=== PATIENT | male | born 1995 | race Caucasian/White ===

== ENCOUNTER 2016-06-21 09:13 | Day surgery (SDC) | payer BC ==
[~2016-06-21] VITALS: Ht 180.3 cm; Wt 68.2 kg
[2016-06-21] VITALS (10 sets, daily range): BP systolic 135–152; BP diastolic 68–90; PULSE 50–87; TEMP 98.1–98.9
[2016-06-21 09:55] LABS: BASO % 0.2 % (0.0-2.0); GRAN # 17.4 (1.4-6.5); GRAN % 87.8 % (42.2-75.2); HEMATOCRIT 46.6 % (36.0-47.0); HEMOGLOBIN 15.8 g/dl (12.5-16.1); LYMPH # 1.2 (1.2-3.4); MEAN CELL VOLUME 87 fl (80.0-95.0); MEAN CORPUSCULAR HEMOGLOBIN 29 pg (26.0-32.0); MEAN CORPUSCULAR HGB CONC 34 g/dl (33.0-37.0); MEAN PLATELET VOLUME 9.8 fl (7.4-10.4); MONO # 1.1 (0.1-0.6); MONO % 5.6 % (1.7-9.3); PLATELET COUNT 286 K/mm3 (130-400); RED BLOOD COUNT 5.39 M/mm3 (4.20-5.60)
[2016-06-21 09:58] LABS: WHITE BLOOD COUNT 19.9 K/mm3 (4.8-10.8)
[2016-06-21 10:05] LABS: PH 7 (5-8); SQUAMOUS EPITHELIAL None Seen /hpf; URINE APPEARANCE Clear; URINE BACTERIA Rare /hpf; URINE BILIRUBIN Negative (NEGATIVE); URINE BLOOD Negative (NEGATIVE); URINE COLOR Yellow; URINE GLUCOSE Negative (NEGATIVE); URINE KETONE Negative (NEGATIVE); URINE RBC 0-2 /hpf; URINE UROBILINOGEN Negative (NEGATIVE); URINE WBC 0-2 /hpf
[2016-06-21 10:05] LABS: ADJUSTED CALCIUM 9.7 mg/dL (8.4-10.2); ALBUMIN 5.4 gm/dL (3.5-5.0); BILIRUBIN,TOTAL 1.2 mg/dL (0.0-1.0); CALCIUM 10.8 mg/dL (8.4-10.2); CREATININE, serum 0.91 mg/dL (0.66-1.25); POTASSIUM 4.1 mmol/L (3.4-5.0); TOTAL PROTEIN 9.3 gm/dL (6.4-8.2)
[2016-06-22 01:54] VITALS: BP 124/62; PULSE 60; TEMP 98
[2016-06-22 05:32] VITALS: BP 131/69; PULSE 55; TEMP 98.2
[2016-06-22 09:37] VITALS: BP 135/59; PULSE 50; TEMP 97.9
[2016-06-22] MEDS ORDERED: NORCO 325 MG-51 TAB PO (13:21)
[2016-06-22] MEDS ORDERED: MOTRIN 400400 MG/TAB PO (13:22)
== END 2016-06-22 14:00 | disposition home or self-care (01) ==
LOC: COL.ER 09:13 → SURG 12:45 → SDCO 12:45 → SURG 14:30 → SDCO 06-22 14:00
PROVIDERS: Emergency Medicine
DX: K35.80 Unspecified acute appendicitis (principal)
CPT/HCPCS: OP; J0694; J1100; J2250; J2270; J2405; J2550; J2704; J2710; J3010; J7030; J7120; Q9967